=== PATIENT | male | born 1980 | race Two or more races ===

== ENCOUNTER 2021-03-27 12:50 | Emergency (ER) | payer OTHER ==
[~2021-03-27] VITALS: Ht 165.1 cm; Wt 3.0 kg
--- NOTE | 2021-03-27 13:12 | PHYS DOC ---
Past History Past Surgical History: No Surgical History Alcohol Use: None General Adult EDM: Chief Complaint: CHEST PAIN HPI: HPI: Patient is a [age] year old [sex] who presents with [] Review of Systems: Review of Systems: Constitutional: Denies fever or chills Eyes: Denies redness or eye pain HENT: Denies nasal congestion or sore throat Respiratory: Denies cough or shortness of breath Cardiovascular: Denies chest pain or palpitations GI: Denies abdominal pain, nausea, or vomiting : Denies dysuria or hematuria Musculoskeletal: Denies back pain or joint pain Integument: Denies rash or skin lesions Neurologic: Denies headache, focal weakness or sensory changes Complete systems were reviewed and found to be within normal limits, except as documented in this note. Allergies: Allergies: Allergies Coded Allergies Type Severity Reaction Last Updated Verified No Known Drug Allergies 03/27/21 No Physical Exam: PE: Constitutional: Well developed, well nourished, no acute distress, non-toxic appearance HENT: Normocephalic, atraumatic Eyes: PERRL, EOMI, conjunctiva normal, no discharge Neck: Normal range of motion, no tenderness, supple Lungs & Thorax: No respiratory distress, equal chest rise and fall Abdomen: Soft, no tenderness Skin: Warm, dry, no erythema, no rash Back: No tenderness, no CVA tenderness Extremities: No tenderness, ROM intact, no edema Neurologic: Alert and oriented X 3, normal motor function, normal sensory function, no focal deficits noted Psychologic: Affect normal, judgment normal Current Patient Data: Vital Signs: Vital Signs Date Time Temp Pulse Resp B/P (MAP) Pulse Ox O2 Delivery O2 Flow Rate FiO2 03/27/21 13:03 98.0 70 18 149/100 (116) 99.0 EKG: EKG: @1306 NSR at 73bpm, NO ST elevation, QRS 86ms, QT/QTc 352/391ms Radiology/Procedures: Radiology/Procedures: PROCEDURE: PORTABLE CHEST 1V XR CHEST 1V History: Chest pain Comparison: None. Technique: AP radiograph of the chest. Findings: The lungs are adequately and symmetrically inflated. No airspace consolidation, pleural effusion or pneumothorax. The cardiomediastinal silhouette and pulmonary vasculature are within normal limits. No acute osseous abnormality. Soft t issues are unremarkable. Impression: 1. No acute cardiopulmonary process. Electronically signed by: Wayne Hitchcock MD (03/27/2021 1:33 PM) [id number] Heart Score: C/O Chest Pain: Yes HEART Score for Chest Pain: HEART Score for Chest Pain Response (Comments) Value History Slighlty/Non-Suspicious 0 ECG Normal 0 Age < 45 0 Risk Factors 1 or 2 Risk Factors 1 Troponin < Normal Limit 0 Total 1 Risk Factors: Risk Factors: DM, Current or recent (<one month) smoker, HTN, HLP, family history of CAD, obesity. Risk Scores: Score 0 - 3: 2.5% MACE over next 6 weeks - Discharge Home Score 4 - 6: 20.3% MACE over next 6 weeks - Admit for Clinical Observation Score 7 - 10: 72.7% MACE over next 6 weeks - Early Invasive Strategies Course & Med Decision Making: Course & Med Decision Making Pertinent Labs and Imaging studies reviewed. (See chart for details) Patient stable for discharge with outpatient follow-up with PCP. Discussed findings and plan with patient, who acknowledges understanding and agreement. Ani Disclaimer: Ani Disclaimer: This electronic medical record was generated, in whole or in part, using a voice recognition dictation system. Departure Departure: Impression: Primary Impression: Atypical chest pain Additional Impression: Nausea and vomiting Qualified Codes: R11.2 - Nausea with vomiting, unspecified Disposition: 01 HOME / SELF CARE / HOMELESS Condition: STABLE Referrals: PCP,NO (PCP) Patient Instructions: Chest Pain (Nonspecific), Qndz-te-[id number], Clear Liquid Diet, Nwsc-ey-Blll, Nausea and Vomiting, Zksk-qp-Corv Scripts Famotidine (PEPCID) 20 Mg Tablet 1 TAB PO BID for Gastritis, #14 TAB Prov: POP PEDRAZA DO 03/27/21 Ondansetron (ONDANSETRON ODT) 4 Mg Tab.rapdis 1 TAB PO PRN Q6-8HRS PRN for NAUSEA, #16 TAB Prov: POP PEDRAZA DO 03/27/21 POP PEDRAZA DO Mar 27, 2021 13:12
[2021-03-27] MEDS ORDERED: FAMOTIDINE 20 MG/2 ML VIAL IVP ONE (13:15)
[2021-03-27] MEDS ORDERED: IV NORMAL SALINE 1,000ML 1,000 ML IV ONE (13:15)
[2021-03-27] MEDS ORDERED: ONDANSETRON PF 4 MG/2 ML VIAL. IVP ONE (13:15)
[2021-03-27] MEDS ORDERED: KETOROLAC 15 MG/ML VIAL. IVP ONE (13:15)
--- NOTE | 2021-03-27 13:18 | EKG ---
[address] [address] Test Date: 2021-03-27 Test Time: 13:06:21 Pat Name: KELSEY COURTNEY Department: Room: Gender: M Director Voice: ANEL : 1980 Requested By: POP PEDRAZA Order Number: [id number] Reading MD: Nathan London MD Measurements Intervals [place] Rate: 73 P: 59 [place]: 160 QRS: 47 QRSD: 86 T: 51 QT: 352 QTc: 391 Interpretive Statements SINUS RHYTHM Electronically Signed On 03-30-2021 9:30:19 GOVERNMENT GAUGER by Nathan London MD
[2021-03-27 13:31] LABS: BASO % 1 % (0-3); EOS # 0.8 x10^3/uL (0.0-0.7); EOS % 10 % (0-3); HEMATOCRIT 40.2 % (39.0-53.0); HEMOGLOBIN 13.5 g/dL (13.0-17.5); LYMPH # 2.1 x10^3/uL (1.0-4.8); LYMPH % 24 % (24-48); MEAN CORPUSCULAR HEMOGLOBIN 30 pg (25-35); MEAN CORPUSCULAR HGB CONC 34 g/dL (31-37); MEAN CORPUSCULAR VOLUME 89 fL (79-100); MONO # 0.6 x10^3/uL (0.0-1.1); MONO % 7 % (0-9); NEUT # 5.1 x10^3uL (1.8-7.7); NEUT % 59 % (31-73); PLATELET COUNT 435 x10^3/uL (140-400); RED BLOOD COUNT 4.53 x10^6/uL (4.30-5.70); RED CELL DISTRIBUTION WIDTH 13.5 % (11.5-14.5); WHITE BLOOD COUNT 8.6 x10^3/uL (4.0-11.0)
--- NOTE | 2021-03-27 13:35 | RAD ---
XR CHEST 1V History: Chest pain Comparison: None. Technique: AP radiograph of the chest. Findings: The lungs are adequately and symmetrically inflated. No airspace consolidation, pleural effusion or p neumothorax. The cardiomediastinal silhouette and pulmonary vasculature are within normal limits. No acute osseous abnormality. Soft tissues are unremarkable. Impression: 1. No acute cardiopulmonary process. Electronically signed by: Wayne Hitchcock MD (03/27/2021 1:33 PM) [id number]
[2021-03-27 13:45] LABS: CALCIUM 9.3 mg/dL (8.5-10.1); GFR 82.3; POTASSIUM 4.1 mmol/L (3.5-5.1)
[2021-03-27 13:52] LABS: INFLUENZA A PATIENT NEGATIVE (NEGATIVE); INFLUENZA B PATIENT NEGATIVE (NEGATIVE)
[2021-03-27 13:56] LABS: BILIRUBIN,URINE NEG (NEG); CLARITY,URINE CLEAR; COLOR,URINE YELLOW; GLUCOSE,URINE NEG (NEG)
[2021-03-27 13:57] LABS: BACTERIA,URINE 0 /HPF (0-FEW); NITRITE,URINE NEG (NEG); SQUAMOUS EPITHELIAL CELL,UR OCC /LPF; UROBILINOGEN,URINE 0.2 mg/dL (0.2 mg/dL); WBC,URINE RARE /HPF (0-4)
[2021-03-27 14:02] LABS: ALBUMIN 4.3 g/dL (3.4-5.0); ALBUMIN/GLOBULIN RATIO 1.2 (1.0-1.7); MAGNESIUM 2.2 mg/dL (1.8-2.4); TOTAL BILIRUBIN 0.5 mg/dL (0.2-1.0)
[2021-03-27 15:24] VITALS: BP 126/77
[2021-03-27] MEDS ORDERED: ONDA4TAB12 PO (15:27)
[2021-03-27] MEDS ORDERED: FAMO-63 PO (15:27)
[2021-03-28] MEDS ORDERED: HYDR-2155 PO (02:29)
== END 2021-03-27 15:30 | disposition home or self-care (01) ==
LOC: ER 13:05
DX: R07.89 Other chest pain (principal); R11.2 Nausea with vomiting, unspecified; Z20.822 Contact with and (suspected) exposure to COVID-19
CPT/HCPCS: 36415; 71045; 80053; 81001; 82553; 83690; 83735; 83880; 84484; 85025; 87428; 93005; 96361; 96374; 96375; 99285; J1885; J2405; J3490; J7030

== ENCOUNTER 2021-03-28 00:30 | Emergency (ER) | payer OTHER ==
[~2021-03-28] VITALS: Ht 165.1 cm; Wt 71.3 kg
[~2021-03-28 00:30] MED LIST: FAMO-63 PO; ONDA4TAB12 PO
--- NOTE | 2021-03-28 00:53 | PHYS DOC ---
Past History Past Surgical History: No Surgical History Alcohol Use: None General Adult EDM: Chief Complaint: CHEST PAIN HPI: HPI: Patient is a [age] year old [sex] who presents with [] Review of Systems: Review of Systems: Constitutional: Denies fever or chills Eyes: Denies redness or eye pain HENT: Denies nasal congestion or sore throat Respiratory: Denies cough or shortness of breath Cardiovascular: Denies chest pain or palpitations GI: Denies abdominal pain, nausea, or vomiting : Denies dysuria or hematuria Musculoskeletal: Denies back pain or joint pain Integument: Denies rash or skin lesions Neurologic: Denies headache, focal weakness or sensory changes Complete systems were reviewed and found to be within normal limits, except as documented in this note. Allergies: Allergies: Allergies Coded Allergies Type Severity Reaction Last Updated Verified No Known Drug Allergies 03/28/21 No Physical Exam: PE: Constitutional: Well developed, well nourished, no acute distress, non-toxic appearance HENT: Normocephalic, atraumatic Eyes: PERRL, EOMI, conjunctiva normal, no discharge Neck: Normal range of motion, no tenderness, supple Lungs & Thorax: No respiratory distress, equal chest rise and fall Abdomen: Soft, no tenderness Skin: Warm, dry, no erythema, no rash Back: No tenderness, no CVA tenderness Extremities: No tenderness, ROM intact, no edema Neurologic: Alert and oriented X 3, normal motor function, normal sensory function, no focal deficits noted Psychologic: Affect normal, judgment normal EKG: EKG: @0103 NSR at 76bpm, NO ST elevation, QRS 82ms, QT/QTc 338/384ms comparied to prior EKG per [facility] from 1306 on 03/27/21 without significant change from prior. Radiology/Procedures: Radiology/Procedures: PROCEDURE: CT ANGIO CHEST W ABD PEL W/ CTA chest abdomen pelvis with contrast dated 03/28/2021. COMPARISON: None. Clinical data indication: Chest pain and upper abdominal pain. TECHNIQUE: Continues axial imaging of the chest abdomen pelvis performed following the intravenous administration of 100 cc Omnipaque 350. Study was performed as dedicated PE protocol with thin cut coronal MIPS 3-D reconstruction. One or more of the following individualized dose reduction techniques were utilized for this examination: 1. Automated exposure control 2. Adjustment of the mA and/or kV according to patient size 3. Use of iterative reconstruction technique. FINDINGS: Contrast bolus is adequate. No evidence of central, lobar or segmental pulmonary embolus. Subsegmental branches are not well evaluated based on technique. Heart size within normal limits. No pericardial effusion. No mediastinal, hilar or axillary lymphadenopathy. Thyroid gland is unremarkable. Central airways are patent. Mild diffuse bronchial wall thickening. Consolidation or pleural effusion. No pneumothorax. No suspicious pulmonary nodule or mass. Liver is homogeneous. No focal hepatic mass. No biliary ductal dilatation. Gallbladder unremarkable. There is mild periportal edema, nonspecific. Spleen is normal in size. Pancreas, adrenal glands and kidneys are unremarkable. No hydronephrosis. Unopacified GI tract normal in caliber and contour. No focal bowel wall thickening. Appendix normal in caliber. No ascites or lymphadenopathy. Abdominal aorta normal in caliber. Images of pelvis show nondistended urinary bladder. Prostate gland normal in size. No free fluid or pelvic adenopathy. Bone window show no acute finding. Mild multilevel spondylosis. IMPRESSION: 1. No evidence of central, lobar or segmental pulmonary embolus. 2. Clear lungs. 3. No acute abnormality of abdomen or pelvis. 4. Mild periportal edema, nonspecific. Correlate with liver function tests. Electronically signed by: Pop Cotton MD (03/28/2021 2:12 AM) [facility] [place] Heart Score: C/O Chest Pain: Yes HEART Score for Chest Pain: HEART Score for Chest Pain Response (Comments) Value History Slighlty/Non-Suspicious 0 ECG Normal 0 Age < 45 0 Risk Factors 1 or 2 Risk Factors 1 Troponin < Normal Limit 0 Total 1 Risk Factors: Risk Factors: DM, Current or recent (<one month) smoker, HTN, HLP, family history of CAD, obesity. Risk Scores: Score 0 - 3: 2.5% MACE over next 6 weeks - Discharge Home Score 4 - 6: 20.3% MACE over next 6 weeks - Admit for Clinical Observation Score 7 - 10: 72.7% MACE over next 6 weeks - Early Invasive Strategies Course & Med Decision Making: Course & Med Decision Making Pertinent Labs and Imaging studies reviewed. (See chart for details) Patient stable for discharge with outpatient follow-up with PCP. Discussed findings and plan with patient, who acknowledges understanding and agreement. Ani Disclaimer: Ani Disclaimer: This electronic medical record was generated, in whole or in part, using a voice recognition dictation system. Departure Departure: Impression: Primary Impression: Atypical chest pain Additional Impressions: Nausea Abdominal pain Qualified Codes: R10.10 - Upper abdominal pain, unspecified Bronchitis Disposition: HOME / SELF CARE / HOMELESS Condition: STABLE Referrals: PCP,NO (PCP) CESAR LUCIA MD Patient Instructions: Abdominal Pain (Nonspecific), Bronchitis, Dnnq-yo-Wpul, Chest Pain (Nonspecific), Ojef-kw-Msty, Nausea, Adult, Icpl-eg-Uqgu Scripts Hydrocodone Bit/Acetaminophen (HYDROCODONE-APAP 5-325 ) 1 Each Tablet 0.5-1 TAB PO PRN Q6HRS PRN for PAIN, #10 TAB 0 Refills Prov: POP PEDRAZA DO 03/28/21 POP PEDRAZA DO Mar 28, 2021 00:53
[2021-03-28] MEDS ORDERED: IV NORMAL SALINE 1,000ML 1,000 ML IV ONE (01:00)
[2021-03-28] MEDS ORDERED: ONDANSETRON PF 4 MG/2 ML VIAL. IVP ONE (01:00)
[2021-03-28] MEDS ORDERED: KETOROLAC 30 MG/ML VIAL. IVP ONE (01:00)
[2021-03-28] MEDS ORDERED: FAMOTIDINE 20 MG/2 ML VIAL IVP ONE (01:00)
--- NOTE | 2021-03-28 01:13 | EKG ---
[address] [address] Test Date: 2021-03-28 Test Time: 01:03:32 Pat Name: KELSEY COURTNEY Department: Room: Gender: M Supervisor Rice Milling: : 1980 Requested By: POP PEDRAZA Order Number: [id number] Reading MD: Nathan London MD Measurements Intervals [place] Rate: 76 P: 57 [place]: 160 QRS: 39 QRSD: 82 T: 54 QT: 338 QTc: 384 Interpretive Statements SINUS RHYTHM Electronically Signed On 03-30-2021 9:23:43 TUNNEL KILN OPERATOR by Nathan London MD
[2021-03-28] MEDS ORDERED: CONTRAST GIVEN. MC PRN (01:15)
[2021-03-28] MEDS ORDERED: IOHEXOL 350 MG/ML 100 ML VIAL. IV ONE (01:15)
--- NOTE | 2021-03-28 02:15 | RAD ---
CTA chest abdomen pelvis with contrast dated 03/28/2021. COMPARISON: None. Clinical data indication: Chest pain and upper abdominal pain. TECHNIQUE: Continues axial imaging of the chest abdomen pelvis performed following the intravenous administratio n of 100 cc Omnipaque 350. Study was performed as dedicated PE protocol with thin cut coronal MIPS 3- D reconstruction. One or more of the following individualized dose reduction techniques were utilized for this examinat ion: 1. Automated exposure control 2. Adjustment of the mA and/or kV according to patient size 3. Use of iterative reconstruction technique. FINDINGS: Contrast bolus is adequate. No evidence of central, lobar or segmental pulmonary embolus. Subsegmenta l branches are not well evaluated based on technique. Heart size within normal limits. No pericardial effusion. No mediastinal, hilar or axillary lymphaden opathy. Thyroid gland is unremarkable. Central airways are patent. Mild diffuse bronchial wall thickening. Consolidation or pleural effusion . No pneumothorax. No suspicious pulmonary nodule or mass. Liver is homogeneous. No focal hepatic mass. No biliary ductal dilatation. Gallbladder unremarkable. There is mild periportal edema, nonspecific. Spleen is normal in size. Pancreas, adrenal glands and kidneys are unremarkable. No hydronephrosis. Unopacified GI tract normal in caliber and contour. No focal bowel wall thickening. Appendix normal i n caliber. No ascites or lymphadenopathy. Abdominal aorta normal in caliber. Images of pelvis show nondistended urinary bladder. Prostate gland normal in size. No free fluid or p elvic adenopathy. Bone window show no acute finding. Mild multilevel spondylosis. IMPRESSION: 1. No evidence of central, lobar or segmental pulmonary embolus. 2. Clear lungs. 3. No acute abnormality of abdomen or pelvis. 4. Mild periportal edema, nonspecific. Correlate with liver function tests. Electronically signed by: Artemio Cotton MD (03/28/2021 2:12 AM) [facility]
[2021-03-28] MEDS ORDERED: HYDR-2155 PO (02:29)
[2021-03-28] MEDS ORDERED: DEXAMETHASONE SOD PHOS 10 MG/ML VIAL. IVP ONE (02:30)
[2021-03-28] MEDS ORDERED: HYDROcodone/APAP 5/325MG 1 TAB TABLET PO ONE (02:30)
[2021-03-28 02:45] VITALS: BP 128/78
== END 2021-03-28 02:48 | disposition home or self-care (01) ==
LOC: ER 00:30
DX: R07.89 Other chest pain (principal); R10.10 Upper abdominal pain, unspecified; R11.0 Nausea; J40 Bronchitis, not specified as acute or chronic
CPT/HCPCS: 36415; 71275; 74177; 84484; 93005; 96361; 96374; 96375; 99285; J1100; J1885; J2405; J3490; J7030; Q9967